=== PATIENT | female | born 1970 | race Caucasian/White ===

== ENCOUNTER → 2020-02-04 17:30 | Outpatient (CLI) | payer OTHER, SELFPAY ==
--- NOTE | ~2020-02-04 | MM_ITS ---
EXAMINATION: MM screening cholo BI w ronnie HISTORY: Screening mammogram TECHNIQUE: Craniocaudal and mediolateral oblique 3-D tomosynthesis images were obtained and synthetic 2-D images were generated. CAD analysis was submitted and interpreted. COMPARISON: No prior mammogram is available for comparison at this institution. BREAST PARENCHYMAL COMPOSITION: The breasts are heterogeneously dense, which may obscure small masses . FINDINGS: Stable bilateral breast asymmetries. No new masses, calcifications or architectural distort ion. There is no evidence of suspicious mass, calcification, or architectural distortion to suggest m alignancy in either breast. IMPRESSION: 1. No mammographic evidence of malignancy. 2. Recommend routine screening mammography in one year. BI-RADS Category 2: Benign finding(s). Reviewed, dictated and finalized at location A.
== END ==
PROVIDERS: Visit Provider Nurse Practitioner Family
DX: Z12.31 Encounter for screening mammogram for malignant neoplasm of breast (principal)
CPT/HCPCS: 77063; 77067

== ENCOUNTER → 2021-07-15 10:19 | Outpatient (CLI) | payer BC, SELFPAY ==
--- NOTE | ~2021-07-15 | MM_ITS ---
EXAMINATION: MM screening cholo BI w ronnie HISTORY: Screening TECHNIQUE: Craniocaudal and mediolateral oblique 3-D tomosynthesis images were obtained and synthetic 2-D images were generated. CAD analysis was submitted and interpreted. COMPARISON: Comparison to multiple prior studies sequentially, with oldest reviewed study dated 08/09. BREAST PARENCHYMAL COMPOSITION: There are scattered areas of fibroglandular density. FINDINGS: There is a developing mass in the upper outer quadrant of the right breast anteriorly. Ther e is possible architectural distortion laterally in the left breast on CC view. IMPRESSION: 1. Developing right breast mass. Possible architectural distortion of the left breast. 2. Additional mammographic views and possible breast ultrasound are recommended. BI-RADS Category 0: Incomplete: Needs additional imaging evaluation. Reviewed, dictated and finalized at location A. IMPRESSION: 1. Developing right breast mass. Possible architectural distortion of the left breast. 2. Additional mammographic views and possible breast ultrasound are recommended . BI-RADS Category 0: Incomplete: Needs additional imaging evaluation.
== END ==
PROVIDERS: Visit Provider Nurse Practitioner
DX: Z12.31 Encounter for screening mammogram for malignant neoplasm of breast (principal); R92.8 Other abnormal and inconclusive findings on diagnostic imaging of breast
CPT/HCPCS: 77063; 77067

== ENCOUNTER 2021-08-08 11:57 | Outpatient (CLI) | payer BC, SELFPAY ==
--- NOTE | ~2021-08-08 | MMUS_ITS ---
EXAMINATION: MM diagnostic cholo BI w ronnie, US breast BI complete HISTORY: Follow-up breast asymmetries TECHNIQUE: Additional 3-D tomosynthesis images of the breasts were performed and synthetic 2-D images were generated. CAD analysis was submitted and interpreted. High resolution bilateral complete breas t ultrasound was performed. COMPARISON: Comparison to multiple prior studies sequentially, with oldest reviewed study dated 07/07. BREAST PARENCHYMAL COMPOSITION: The breasts are heterogenously dense, which may obscure small masses. FINDINGS: MAMMOGRAPHIC FINDINGS: There are masses in the periareolar aspect of the right breast. There are no suspicious masses, calci fications or architectural distortion in the left breast. ULTRASOUND: Right breast ultrasound: At 2:00, 2 cm from the nipple, there is a 4 mm cyst. There are mildly promin ent subareolar ducts. At 11:00, 3 cm from the nipple there is a 6 mm cyst. At 11:00, 2 cm from the ni pple, there is an oval hypoechoic mass with heterogeneous internal echotexture measuring 1.5 x 1.4 x 0.7 cm there is parallel orientation without significant posterior features or internal vascularity. Left breast ultrasound: At 5:00, 5 cm from the nipple, there is an oval hypoechoic mass measuring 6 m m maximum dimension, likely a benign cluster of microcysts. IMPRESSION: 1. Probable benign bilateral breast masses. 2. Recommend 6 month follow-up diagnostic bilateral mammogram and ultrasound BI-RADS category 3, probably benign findings. Reviewed, dictated and finalized at location A. IMPRESSION: 1. Probable benign bilateral breast masses. 2. Recommend 6 month follow-up diagnostic bilateral mammogram and ultrasound BI-RADS category 3, probably benign findings.
== END 2021-08-08 11:58 | disposition home or self-care (01) ==
LOC: ANHIMG 11:59
PROVIDERS: Visit Provider Obstetrics & Gynecology Gynecology
DX: R92.8 Other abnormal and inconclusive findings on diagnostic imaging of breast (principal)
CPT/HCPCS: 76641; 77062; 77066; G0279

== ENCOUNTER 2021-08-12 01:12 | Day surgery (SDC) | payer BC, SELFPAY ==
[2021-08-02 10:22] VITALS: BMI 33.0
[2021-08-12 06:20] VITALS: BP 139/88; PULSE 96; RESP 20; TEMP 36.1; O2SAT 95; BMI 33.3
[2021-08-12] MEDS: LACTATED RINGERS 1,000 ML 150 ML IV CONT (06:39)
--- NOTE | 2021-08-12 07:22 | P.PNAN_ITS ---
Anes - Initial Pre Proc Eval Procedure: Operation Date: 08/12/21 07:30 Proposed Procedures p Screening Colonoscopy - Alden Rae MD Date/Time: 08/12/21 07:22 Surgeon: Alden Rae MD Pre Op Diagnosis: neoplasm screening Patient Data Age: 50 Gender: F Height: 1.7 m Weight: 96.6 kg Last Vital Signs Temp 96.9 F L 08/12/21 06:20 Pulse 96 08/12/21 06:20 Resp 20 08/12/21 06:20 BP 139/88 08/12/21 06:20 Pulse Ox 95 08/12/21 06:20 Allergies Allergy/AdvReac Type Severity Reaction Status Date / Time aspirin AdvReac Mild UNSURE Verified 08/12/21 06:18 Home Medications Medication Instructions Recorded Confirmed Type buspirone 7.5 mg tablet 7.5 mg PO BID PRN tablet 06/14/21 08/02/21 History bqfmeyrjxz-xxtsopkszuvzb-rmottgrd See Rx Instructions PO Q4-6H PRN 06/14/21 08/02/21 History 50 mg-300 mg-40 mg capsule cap indomethacin 50 mg capsule 100 mg PO BID PRN cap 06/14/21 08/02/21 History eslicarbazepine [Aptiom] 600 mg PO DAILY 08/02/21 08/02/21 History Patient hx anesthesia problems: none Family hx anesthesia problems: none Results Review: All pre-operative results and documents have been reviewed as part of the pre-operative evaluation. [facility] Past Medical History Medical History (Updated 08/12/21 @ 07:23 by Kirt Pitts MD) Migraine Obesity Seizure Social History Social History Smoking packs per day: 1 Smoking cigarettes per day: 20.0 Years smoked: 30 Smoking pack-years: 30.00 Smoking status: Current every day smoker Tobacco type: cigarettes Alcohol intake: current Living arrangements: with family Spiritual care concerns: No Anes - Eval Final PreProcedure Day of Procedure 08/12/21 07:22 Patient weight: obese Heart: regular rate and rhythm Lungs: clear to auscultation Airway: Mallampati scale class II Neurological: alert and oriented Last oral intake: >/= 8 hours ASA classification: III Emergent: no Anesthetic plan: proceed Anesthesia type and monitoring: general GIVS and standard monitoring Results Review: All pre-operative results and documents have been reviewed as part of the pre-operative evaluation. Informed Consent: The patient's anesthetic plan and its attendant risks and benefits were discussed with the patient/family/POA. Questions were solicited and answers provided to the satisfaction of the patient/family/POA.
--- NOTE | 2021-08-12 07:22 | PM.HPGS ---
History of Present Illness History of Present Illness Consent: Risks, benefits, and alternatives have been discussed and questions answered. Patient agrees to proceed with procedure. Chief complaint: neoplasm screening Narrative: Stefanie Ocampo is a 50 year old female here for first screening colonoscopy Review of Systems Constitutional: Constitutional: Denies headache(s) and Denies weakness Eyes: Eyes: Denies blurry vision ENT: Reports Normal hearing present, Denies headache(s) and Denies neck pain Cardiovascular: Cardiovascular: Denies chest pain and Denies dyspnea Respiratory: Respiratory: Denies dyspnea Gastrointestinal: Gastrointestinal: Reports no additional gastrointestinal complaints Genitourinary: Genitourinary: Denies dysuria Musculoskeletal: Musculoskeletal: Denies neck pain Integumentary/Breasts: Skin/Breast: Denies dry skin Neurologic: Reports Normal hearing present, Denies headache(s) and Denies weakness Psychiatric: Psychiatric: Denies anxiety Endocrine: Endocrine: Denies change in body appearance Hematologic/Lymphatic: Hematologic/Lymphatic: Denies easy bleeding Allergic/Immunologic: Allergic/Immunologic: Denies urticaria PMFSH Past Medical History Medical History (Updated 08/12/21 @ 07:25 by Alden Rae MD) Colon cancer screening Migraine Obesity Seizure Social History Social History Smoking packs per day: 1 Smoking cigarettes per day: 20.0 Years smoked: 30 Smoking pack-years: 30.00 Smoking status: Current every day smoker Tobacco type: cigarettes Alcohol intake: current Living arrangements: with family Spiritual care concerns: No Meds Home Medications and Allergies Home Medications Medication Instructions Recorded Confirmed Type buspirone 7.5 mg tablet 7.5 mg PO BID PRN tablet 06/14/21 08/02/21 History tzepvklbwq-ifhwwfvuwnefk-cdnlmnvf See Rx Instructions PO Q4-6H PRN 06/14/21 08/02/21 History 50 mg-300 mg-40 mg capsule cap indomethacin 50 mg capsule 100 mg PO BID PRN cap 06/14/21 08/02/21 History eslicarbazepine [Aptiom] 600 mg PO DAILY 08/02/21 08/02/21 History Allergies Allergy/AdvReac Type Severity Reaction Status Date / Time aspirin AdvReac Mild UNSURE Verified 08/12/21 06:18 Vital Signs Vital Signs - 24 hr 08/12/21 06:20 Temperature 96.9 F L Pulse Rate 96 Respiratory Rate 20 Blood Pressure 139/88 Pulse Oximetry 95 Exam Const: General: comfortable and no acute distress HENMT: General nose exam: Normal nares present Eyes: General: appearance normal, both eyes and all related structures Neck: Neck: no JVD Resp: Auscultation: clear to auscultation bilaterally Cardio: Rate: regular rate Rhythm: regular rhythm GI: Inspection: non-distended GI Palp: Yes Soft to palpation Skin: General skin exam: normal color Neuro: General: gait normal Speech: normal speech Extrem: General: normal to inspection Psych: Mental Status: mental status grossly normal Assessment and Plan Assessment and plan (1) Colon cancer screening: Code(s): Z12.11 - Encounter for screening for malignant neoplasm of colon Status: Acute Assessment and Plan: colonoscopy
[2021-08-12 07:53] VITALS: BP 108/70; PULSE 70; RESP 17; O2SAT 97
[2021-08-12 08:03] VITALS: BP 117/75; PULSE 65; RESP 16; O2SAT 97
[2021-08-12 08:13] VITALS: BP 119/76; PULSE 61; RESP 17; O2SAT 97
== END 2021-08-12 08:43 | disposition home or self-care (01) ==
PROVIDERS: PCP Internal Medicine; Visit Provider Internal Medicine Gastroenterology
PROC: 0DJD8ZZ Inspection of Lower Intestinal Tract, Via Natural or Artificial Opening Endoscopic (ICD-10-PCS; CPT 45378; principal; 2021-08-12 07:30)
DX: Z12.11 Encounter for screening for malignant neoplasm of colon (principal); K62.1 Rectal polyp; D12.0 Benign neoplasm of cecum; D12.5 Benign neoplasm of sigmoid colon; D12.3 Benign neoplasm of transverse colon; K63.5 Polyp of colon; K57.30 Diverticulosis of large intestine without perforation or abscess without bleeding; K64.8 Other hemorrhoids; R56.9 Unspecified convulsions; F17.210 Nicotine dependence, cigarettes, uncomplicated; E66.9 Obesity, unspecified; Z68.33 Body mass index [BMI] 33.0-33.9, adult
CPT/HCPCS: 45385; 88305; J7120

== ENCOUNTER → 2022-04-19 09:14 | Outpatient (CLI) | payer BC, SELFPAY ==
--- NOTE | ~2022-04-19 | MMUS_ITS ---
EXAMINATION: MM diagnostic cholo BI w ronnie, US breast BI limited HISTORY: Six-month follow-up for probably benign breast masses TECHNIQUE: Craniocaudal, mediolateral, and mediolateral oblique 3-D tomosynthesis images of the breluke ts were performed and synthetic 2-D images were generated. CAD analysis was submitted and interpreted . High resolution limited bilateral breast ultrasound was performed. COMPARISON: 08/08/2021, 07/15/2021, 02/04/2020, 05/07/2019, 08/15/2017 BREAST PARENCHYMAL COMPOSITION: The breasts are heterogeneously dense, which may obscure small masses . FINDINGS: MAMMOGRAPHIC FINDINGS: Left breast: There is a 1.4 cm mass in the middle third of the inner breast at the 9:00 location 5.5 cm from the nipple. Right breast: There is a stable 1.3 cm oval, obscured equal density mass near the in the upper outer quadrant of the breast at the 11:00 location 2 cm from the nipple. ULTRASOUND: Left breast: There is a stable 6 mm mass at the 4:00 location 5 cm from the nipple which has the appe arance of an evolving cluster of microcysts. Right breast: There is a stable 3 mm round mass at the 2:00 location 2 cm from the nipple. There is a stable 4 mm oval, circumscribed, parallel, hypoechoic mass with no posterior features or internal va scularity at the 7:00 location 6 cm from the nipple. A solid 1.4 cm mass is present at the 11:00 loca tion 2 cm from the nipple which has been stable since 2019. An adjacent 7 mm mass with similar sonogr aphic features is also stable. IMPRESSION: 1. No mammographic or sonographic evidence of malignancy. 2. Recommend routine screening mammography in one year. BI-RADS Category 2: Benign finding(s). Reviewed, dictated and finalized at location A. IMPRESSION: 1. No mammographic or sonographic evidence of malignancy. 2. Recommend routine screening mammography in one year. BI-RADS Category 2: Benign finding(s).
== END ==
PROVIDERS: PCP Internal Medicine; Visit Provider Obstetrics & Gynecology Gynecology
DX: N63.25 Unspecified lump in the left breast, overlapping quadrants (principal); N63.14 Unspecified lump in the right breast, lower inner quadrant
CPT/HCPCS: 76642; 77062; 77066; G0279

== ENCOUNTER → 2023-06-25 15:46 | Outpatient (CLI) | payer BC, SELFPAY ==
--- NOTE | ~2023-06-25 | MM_ITS ---
EXAMINATION: MM screening cholo BI w ronnie HISTORY: Screening TECHNIQUE: Craniocaudal and mediolateral oblique 3-D tomosynthesis images were obtained and synthetic 2-D images were generated. CAD analysis was submitted and interpreted. COMPARISON: Comparison to multiple prior studies sequentially, with oldest reviewed study dated 02/2017. BREAST PARENCHYMAL COMPOSITION: Breast composed of scattered areas of fibroglandular density FINDINGS: There are multiple developing bilateral breast masses. There are no suspicious calcificatio ns. No focal architectural distortion is identified. IMPRESSION: 1. Developing bilateral breast masses involving multiple quadrants of the right breast in the lower i nner quadrant of the left breast.. 2. Additional mammographic views and possible breast ultrasound are recommended. BI-RADS Category 0: Incomplete: Needs additional imaging evaluation. Reviewed, dictated and finalized at location A. IMPRESSION: 1. Developing bilateral breast masses involving multiple quadrants of the right breast in the lower inner quadrant of the left breast.. 2. Additional mammographic views and possible breast ultrasound are recommended . BI-RADS Category 0: Incomplete: Needs additional imaging evaluation.
== END ==
PROVIDERS: PCP Nurse Practitioner; Visit Provider Nurse Practitioner
DX: Z12.31 Encounter for screening mammogram for malignant neoplasm of breast (principal); N63.25 Unspecified lump in the left breast, overlapping quadrants; N63.15 Unspecified lump in the right breast, overlapping quadrants
CPT/HCPCS: 77063; 77067

== ENCOUNTER → 2023-07-20 08:04 | Outpatient (CLI) | payer BC, SELFPAY ==
--- NOTE | ~2023-07-20 | MMUS_ITS ---
EXAMINATION: MM diagnostic cholo BI w ronnie, US breast BI complete HISTORY: Developing bilateral breast masses seen in multiple quadrants of right breast and lower inne r quadrant of left breast were reported on 06/25/2023 right screening mammogram examination TECHNIQUE: Additional 3-D tomosynthesis images of both breasts were performed and synthetic 2-D image s were generated. CAD analysis was submitted and interpreted. High resolution complete bilateral hernan st ultrasound examination including all 4 quadrants and subareolar areas was performed. COMPARISON: 06/25/2023 bilateral screening mammogram FINDINGS: MAMMOGRAPHIC FINDINGS: Right breast: Circumscribed approximately 1.8 cm x 1.5 cm mass is noted anteriorly in the upper outer right breast. Bilobed approximately 7.4 x 16 mm circumscribed mass is noted in the outer mid right breast. Left breast: Circumscribed approximately 7 x 15 mm mass with halo sign is noted in the inner mid left breast. ULTRASOUND: Right breast: 9:00 4.5 cm from nipple: There is a bilobed approximately 5 x 10.5 mm circumscribed mildly irregular mass with mild internal vascularity on color flow imaging. 11:00 3.5 cm from nipple: Circumscribed irregular hypoechoic heterogeneous solid 1 x 2 x 1.5 cm mass with internal vascularity, no posterior shadowing 11:00 5 cm from nipple: Circumscribed mildly irregular hypoechoic solid 5.7 x 8.3 x 8.7 mm mass witho ut internal vascularity or posterior shadowing Left breast: 9:00 5 cm from nipple: Parallel circumscribed hypoechoic 7 x 10 mm mass without internal vascularity or posterior shadowing, benign in appearance IMPRESSION: 1. 3 indeterminate right breast solid masses with mildly irregular margins, at 9:00 and 11:00 2. Ultrasound-guided biopsy of 3 right breast masses is recommended BI-RADS category 4, suspicious findings. Dr. Almaguer telephoned the report and ultrasound-guided biopsy recommendation of 3 right breast masses o n 07/14/2023 at 1047 hours to [place]. Reviewed, dictated and finalized at location A. IMPRESSION: 1. 3 indeterminate right breast solid masses with mildly irregular margins, at 9:00 and 11:00 2. Ultrasound-guided biopsy of 3 right breast masses is recommended BI-RADS category 4, suspicious findings. Dr. Almaguer telephoned the report and ultrasound-guided biopsy recommendation of 3 right breast masses on 07/14/2023 at 1047 hours to [place].
== END ==
PROVIDERS: PCP Obstetrics & Gynecology Gynecology; Visit Provider Obstetrics & Gynecology Gynecology
DX: R92.8 Other abnormal and inconclusive findings on diagnostic imaging of breast (principal)
CPT/HCPCS: 76641; 77062; 77066; G0279

== ENCOUNTER 2023-08-10 08:37 | Outpatient (CLI) | payer BC, SELFPAY ==
--- NOTE | ~2023-08-10 | MMUS_ITS ---
ADDENDUM 08/21/2023 pathology report: Fibroepithelial proliferation with features consistent with fibroadenoma was reported for right breast 11:00 lesion 5 cm from nipple, right breast 11:00 lesion 3.5 cm from nipple and right breast 9:00 lesion 4.5 cm from nipple. The imaging and pathology findings are concordant. 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 ADDENDUM 08/13/2023 pathology report: Left breast 11:00 lesion 5 cm from nipple: Fibroadenoma; negative for in situ or invasive carcinoma Left breast 11:00 3.5 cm from nipple: Fibroadenoma and fibrocystic changes; negative for in situ or invasive carcinoma Left breast 9:00 4.5 cm from nipple: Fibroadenoma; negative for in situ or invasive carcinoma Sonographic features and pathology diagnosis are concordant for all 3 lesions. CORRECTED REPORT side was corrected from left to right [facility] [place] 08/14/23 This report was recreated on 08/14/23. Original report was EXAMINATION: US GUIDED NEEDLE BIOPSY DATE: 08/10/2023 10:37 CDT INDICATION: RIGHT breast masses at 9:00 4.5 cm from nipple, 11:00 3.5 cm from nipple and 11:00 5 cm from nipple TECHNIQUE AND FINDINGS: The risks and potential benefits of the procedure were discussed with the patient, and written informed consent was obtained. Timeout procedure was performed. After sterile preparation of the left breast, 1% lidocaine was utilized for local anesthesia. A 12 G spring-loaded biopsy gun needle was advanced to the edge of the region of interest from a superolateral approach through the same incision site for all 3 lesions, utilizing sonographic guidance. A total of 4 tissue core samples were obtained through the 9:00 lesion and 3 tissue core samples each from the 11:00 lesions. An Inrad tissue marker clip was then placed at each biopsy site. Hemostasis was achieved. A sterile bandage was applied. The patient tolerated procedure well and there was no evidence of immediate complication. The patient was given verbal instructions prior to departing from the department. A two view mammogram was performed to document tissue marker clip placement. The tissue samples were submitted to surgical pathology for histologic analysis. IMPRESSION: Ultrasound guided biopsy of 3 RIGHT breast masses with biopsy marker placement. Please refer to pathology report for histologic analysis. Reviewed, dictated and finalized at Location A. Reviewed, dictated and finalized at location A. MTDD IMPRESSION: Ultrasound guided biopsy of 3 left breast masses with biopsy marker placement. Please refer to pathology report for histologic analysis.
== END 2023-08-10 08:38 | disposition home or self-care (01) ==
PROVIDERS: PCP Obstetrics & Gynecology Gynecology; Visit Provider Surgery
DX: N63.10 Unspecified lump in the right breast, unspecified quadrant (principal); R92.8 Other abnormal and inconclusive findings on diagnostic imaging of breast
CPT/HCPCS: 19083; 19084; 88305; A4648

== ENCOUNTER 2024-05-28 10:32 | Outpatient (CLI) | payer BC, SELFPAY ==
--- NOTE | ~2024-05-28 | MR_ITS ---
MRI of the brain Clinical History: Migraine Technique: Axial and sagittal T1-weighted images were acquired. These were followed by axial T2-weigh megan, diffusion weighted, gradient, and FLAIR images. COMPARISON: 12/05/2018 Findings: No significant signal abnormality seen in the brain parenchyma. No acute infarct, intracran ial hemorrhage, or mass lesion. Ventricles and subarachnoid spaces are unremarkable. Orbits are unremarkable. Paranasal sinuses and m astoid air cells are clear. Major intracranial flow voids are intact. Sagittal midline structures are intact. IMPRESSION: No significant abnormality seen. Reviewed, dictated and finalized at location M.
== END 2024-05-28 10:33 ==
LOC: MICIMG 10:33
PROVIDERS: PCP Internal Medicine; Visit Provider Student in an Organized Health Care Education/Training Program
DX: G43.909 Migraine, unspecified, not intractable, without status migrainosus (principal); Z86.69 Personal history of other diseases of the nervous system and sense organs
CPT/HCPCS: 70551

== ENCOUNTER 2024-11-28 00:12 | Day surgery (SDC) | payer BC, SELFPAY ==
[2024-11-14 10:25] VITALS: BMI 32.1
[2024-11-28 07:14] VITALS: BP 140/88; PULSE 77; RESP 16; TEMP 35.9; O2SAT 99; BMI 33.0
[2024-11-28] MEDS: LACTATED RINGERS 1,000 ML 150 ML IV CONT (07:22)
--- NOTE | 2024-11-28 07:23 | WPDANESEPPF ---
Anes - Initial Pre Proc Eval Procedure: Operation Date: 11/28/24 08:30 Proposed Procedures p Colonoscopy - Dionicio Mcdonald MD Date/Time: 11/28/24 07:23 Surgeon: Dionicio Mcdonald MD Pre Op Diagnosis: hx of colon polyps Patient Data Age: 53 Gender: F Height: 1.7 m Weight: 95.8 kg Last Vital Signs Temp 35.9 C L 11/28/24 07:14 Pulse 77 11/28/24 07:14 Resp 16 11/28/24 07:14 BP 140/88 11/28/24 07:14 Pulse Ox 99 11/28/24 07:14 O2 Del Method Room Air 11/28/24 07:14 Allergies Allergy/AdvReac Type Severity Reaction Status Date / Time aspirin AdvReac Intermediate Seizure Verified 11/28/24 07:11 Home Medications ?Medication ?Instructions ?Recorded ?Confirmed ?Type buspirone 7.5 mg tablet 7.5 mg PO BID PRN Anxiety 06/14/21 11/14/24 History indomethacin 50 mg capsule 100 mg PO BID PRN Pain 06/14/21 11/14/24 History ubrogepant 100 mg tablet (Ubrelvy) 100 mg PO ONCE PRN migraine 04/29/24 11/14/24 Rx headache #16 tabs atorvastatin 10 mg tablet 10 mg PO QPM 11/14/24 11/28/24 History hydrochlorothiazide 25 mg tablet 25 mg PO DAILY 11/14/24 11/28/24 History eslicarbazepine 800 mg tablet 800 mg PO DAILY #30 tabs 11/25/24 11/28/24 Rx (Aptiom) levetiracetam 500 mg 500 mg PO DAILY #120 tabs 11/25/24 11/28/24 Rx tablet,extended release 24 hr (Keppra XR) Patient hx anesthesia problems: none Family hx anesthesia problems: none Results Review: All pre-operative results and documents have been reviewed as part of the pre-operative evaluation. [facility] Past Medical History Medical History Hyperlipidemia Epilepsy HTN (hypertension) Colon cancer screening Obesity Migraine Seizure Surgical History Surgical History History of tubal ligation 2008 Hx of breast surgery 2009 History of vaginal surgery cone procedure in 2009 Family History Family History Other Cancer Heart disease Hypertension Social History Social History Social History: current Smoking packs per day: 1 Smoking cigarettes per day: 20.0 Years smoked: 30 Smoking pack-years: 30.00 Smoking status: Former smoker Tobacco type: cigarettes Smoking end date: 05/30/22 Alcohol intake: current Drinks per week: 6 Alcohol use details: Casual Substance use: never Substance use type: does not use Do You Feel Safe in your Home?: Yes Lack of Transportation: No Lack of Food: Never True Current Housing: I Have Housing Concerned About Future Housing: No Difficulty Paying Gas/Electric Bills: No Difficulty Paying for Meds: No Currently Unemployed: No Education: Associate Degree Living arrangements: with family Occupation/Education: occupation Gender identity (if verbalized by the patient): Female Spiritual care concerns: No Anes - Eval Final PreProcedure Day of Procedure 11/28/24 07:23 Patient weight: obese Heart: regular rate and rhythm Lungs: clear to auscultation Airway: Mallampati scale class II Neurological: alert and oriented Last oral intake: >/= 8 hours ASA classification: III Emergent: no Anesthetic plan: proceed Anesthesia type and monitoring: general GIVS and standard monitoring Results Review: All pre-operative results and documents have been reviewed as part of the pre-operative evaluation. Informed Consent: The patient's anesthetic plan and its attendant risks and benefits were discussed with the patient/family/POA. Questions were solicited and answers provided to the satisfaction of the patient/family/POA.
--- NOTE | 2024-11-28 08:03 | PM.IMHP ---
H&P: HPI History of Present Illness Date/Time: 11/28/24 08:03 Chief Complaint: history of polyps Narrative: The patient has a history of colonic polyps, the last colonoscopy was Five years ago. Review of Systems Review of Systems: All systems reviewed & are unremarkable except as noted in HPI and below PMFSH Past Medical History Medical History Hyperlipidemia Epilepsy HTN (hypertension) Colon cancer screening Obesity Migraine Seizure Surgical History Surgical History History of tubal ligation 2008 Hx of breast surgery 2009 History of vaginal surgery cone procedure in 2009 Family History Family History Other Cancer Heart disease Hypertension Social History Social History Social History: current Smoking packs per day: 1 Smoking cigarettes per day: 20.0 Years smoked: 30 Smoking pack-years: 30.00 Smoking status: Former smoker Tobacco type: cigarettes Smoking end date: 05/30/22 Alcohol intake: current Drinks per week: 6 Alcohol use details: Casual Substance use: never Substance use type: does not use Do You Feel Safe in your Home?: Yes Lack of Transportation: No Lack of Food: Never True Current Housing: I Have Housing Concerned About Future Housing: No Difficulty Paying Gas/Electric Bills: No Difficulty Paying for Meds: No Currently Unemployed: No Education: Associate Degree Living arrangements: with family Occupation/Education: occupation Gender identity (if verbalized by the patient): Female Spiritual care concerns: No Meds Home Medications and Allergies Home Medications ?Medication ?Instructions ?Recorded ?Confirmed ?Type buspirone 7.5 mg tablet 7.5 mg PO BID PRN Anxiety 06/14/21 11/14/24 History indomethacin 50 mg capsule 100 mg PO BID PRN Pain 06/14/21 11/14/24 History ubrogepant 100 mg tablet (Ubrelvy) 100 mg PO ONCE PRN migraine 04/29/24 11/14/24 Rx headache #16 tabs atorvastatin 10 mg tablet 10 mg PO QPM 11/14/24 11/28/24 History hydrochlorothiazide 25 mg tablet 25 mg PO DAILY 11/14/24 11/28/24 History eslicarbazepine 800 mg tablet 800 mg PO DAILY #30 tabs 11/25/24 11/28/24 Rx (Aptiom) levetiracetam 500 mg 500 mg PO DAILY #120 tabs 11/25/24 11/28/24 Rx tablet,extended release 24 hr (Keppra XR) Allergies Allergy/AdvReac Type Severity Reaction Status Date / Time aspirin AdvReac Intermediate Seizure Verified 11/28/24 07:11 Vital Signs Vital Signs - 24 hr 11/28/24 07:14 Temperature 96.6 F L Pulse Rate 77 Respiratory Rate 16 Blood Pressure 140/88 Pulse Oximetry 99 Oxygen Delivery Room Air Exam Const: General: cooperative and healthy appearing Resp: Effort & Inspection: normal respiratory effort and able to speak in complete sentences Auscultation: clear to auscultation bilaterally Cardio: Rate: regular rate Rhythm: regular rhythm GI: Inspection: normal to inspection GI Palp: No No hepatosplenomegaly present Auscultation: normal bowel sounds Rectal Exam: deferred Skin: General skin exam: normal color Psych: Appearance: grossly normal Mental Status: mental status grossly normal Assessment and Plan Assessment and plan (1) Colon cancer screening: Code(s): Z12.11 - Encounter for screening for malignant neoplasm of colon Status: Acute Assessment and Plan: The patient is deemed a good candidate for the procedure. Consent signed. Will proceed.
[2024-11-28 08:18] VITALS: BP 118/64; PULSE 72; RESP 24; O2SAT 100
[2024-11-28 08:28] VITALS: BP 106/65; PULSE 60; RESP 14; O2SAT 100
[2024-11-28 08:38] VITALS: BP 126/75; PULSE 57; RESP 16; O2SAT 100
--- OUTSIDE RECORDS SUMMARY | 2024-12-04 04:36 | XMS_ITS | Clinical Summary ---
Author Organization [facility] Address [address] [place] [phone] Phone Care Team Providers Care Copping Machine Operator Name Role Phone Hayden Mendez MD Primary Care Provider [phone] Allergies Active Allergy Reactions Criticality Noted Date Comments Aspirin Seizure High 06/30/2015 seizure Medications atorvastatin (LIPITOR) 10 mg tablet Take 10 mg by mouth. 12/17/2023 Active busPIRone (BUSPAR) 7.5 mg Tablet TAKE 2 TABLETS(15 MG) BY MOUTH TWICE DAILY 12/17/2023 Active cyanocobalamin (VITAMIN B-12) 250 mcg Tablet Take 250 mcg by mouth daily. Active eslicarbazepine (Aptiom) 600 mg Tablet tablet Take 1 Tablet by mouth daily. Active glucosamine-cho ndroitin (ARTHX DS) 500-400 mg Capsule Take 1 Capsule by mouth daily. Active hydroCHLOROthia zide 25 mg tablet Take 25 mg by mouth. 12/10/2023 Active indomethacin (INDOCIN) 50 mg capsule TAKE 1 CAPSULE(50 MG) BY MOUTH THREE TIMES DAILY NEEDED 09/15/2022 Active Active Problems Problem Noted Date Diagnosed Date Hyperlipidemia 01/02/2024 HTN (hypertension), benign 01/02/2024 Gout, arthritis 10/16/2017 Grand mal seizure disorder 03/13/2013 Anxiety 06/25/2012 Migraine, unspecified, not i ntractable, without status migrainosus 06/25/2012 Encounters Date Type Department Care Team Description 12/02/2024 External Device Data ST[facility] ABSTRACTION Provider, Abstract 11/18/2024 External Device Data [facility] ABSTRACTION Provider, Abstract 09/10/2024 External Device Data [facility] ABSTRACTION Provider, Abstract from Last 3 Months Immunizations Immunization Administration Dates Next Due INFLUENZA VACCINE QUADRIVALE NT 6 MOS UP PF IM 08/27/2023,07/27/2022,08/17/2021 Social History Tobacco Use Types Packs/Day Years Used Date Smoking Tobacco: Every Day Cigarettes Smokeless Tobacco: Never Comments No Sex and Gender Information Value Date Recorded Sex Assigned at Not on file Legal Sex Female 8:27 PM CDT Gender Identity Not on file Sexual Orientation Not on file Last Filed Vital Signs Vital Sign Reading Time Taken Comments Blood Pressure 138/78 01/02/2024 9:31 AM TRAFFIC MAINTENANCE OFFICER Pulse 74 01/02/2024 9:31 AM TRAFFIC MAINTENANCE OFFICER Temperature 36.6 ??C (97.8 ??F) 01/02/2024 9:31 AM CS T Respiratory Rate - - Oxygen Saturation 96% 01/02/2024 9:31 AM TRAFFIC MAINTENANCE OFFICER Inhaled Oxygen Concentration - - Weight 98.5 kg (217 lb 4 oz) 01/02/2024 9:31 AM TRAFFIC MAINTENANCE OFFICER Height 170.2 cm (5' 7 ) 01/02/2024 9:31 AM TRAFFIC MAINTENANCE OFFICER Body Mass Index 34.03 01/02/2024 9:31 AM TRAFFIC MAINTENANCE OFFICER Plan of Treatment Health Maintenance Due Date Last Done Comments Pre-Diabetes and Diabetes Screening 1969 PNEUMOCOCCAL VACCINE 0-64 YE ARS (1 of 2 - PCV) 1975 DTAP/TDAP/TD VACCINES (1 - Tdap) 1988 HEPATITIS B VACCINES (1 of 3 - 19+ 3-dose series) 1988 CERVICAL CANCER SCREENING 1999 BREAST CANCER SCREENING 2009 FIT-DNA Q 3 years 2014 FIT/FOBT Q 1 year 2014 Flex Sig/CT Colonography Q 5 years 2014 ZOSTER VACCINE (1 of 2) 2019 INFLUENZA VACCINE (#1) 2024 3, 07/27/2022, 08/17/2021 COVID-19 Vaccine ( season) 2024 11/20/2021, 03/11/2021, 02/11/2021 COLORECTAL SCREENING 08/12/2031 08/12/2021 Colorectal Cancer Screening 08/12/2031 Insurance [facility] [employer] ACCESS CHOICE [facility] [employer] ACCESS CHOICE Care Teams Copping Machine Operator Relationship Specialty Start Date End Date Hayden Mendez MD [address] [place] [address] PCP - General Internal Medicine 01/02/24
--- OUTSIDE RECORDS SUMMARY | 2024-12-04 04:36 | XMS_ITS | Encounter Summary ---
Author Organization [facility] Address [address] [place] [address] Care Team Providers Care Pest Control Worker Name Role Phone Hayden Mendez MD Primary Care Provider [phone] Encounter Details Date Type Department Care Team (Late st Contact Info) Description 03/29/2020 Lab Requisition [facility] [address] [place] [address] Kevyn Adams MD [address] [place] [address] Social History Tobacco Use Types Packs/Day Years Used Date Smoking Tobacco: Never Assessed Comments Unknown Sex and Gender Information Value Date Recorded Sex Assigned at Not on file Legal Sex Female 8:27 PM CDT Gender Identity Not on file Sexual Orientation Not on file documented as of this encounter Plan of Treatment Not on file documented as of this encounter Procedures Procedure Name Priority Date/Time Associated Diagnosis Comments 2019 NOVEL CORONAVIRUS (COVID-19) PCR DETECTION Routine 03/29/2020 8:28 PM CDT documented in this encounter Results * 2019 NOVEL CORONAVIRUS (COVID-19) PCR DETECTION (03/29/2020 8:28 PM CDT) COVID-19 PCR Not Detected Not Detected 03/31/20 20 5:15 AM CDT [facility] Comment:See Scanned Report PERFORMING LAB [facility] 03/31/2020 5:15 AM CDT [facility] Upper Respiratory Collection / Unknown 03/29/2020 8:28 PM CDT 03/29/2020 8:28 PM CDT Kevyn Adams MD MICROBIOLOGY - GENERAL ORDERABLES Final Result [facility] --- [facility]# [id number] [address] [place] [address] [id number] [address] [place] [address] documented in this encounter Visit Diagnoses Not on filedocumented in this encounter Care Teams Pest Control Worker Relationship Specialty Start Date End Date Hayden Mendez MD [address] [place] [phone] PCP - General Internal Medicine 01/02/24 documented as of this encounter
--- OUTSIDE RECORDS SUMMARY | 2024-12-04 04:36 | XMS_ITS | Referral Summary ---
Author Organization [facility] Address [address] [facility] [place] [address] Care Team Providers Care Engraver Jewelry Name Role Phone Hayden Mendez MD Primary Care Provider [phone] [facility],non-owned Affiliates and Associated Physician Practices is amultiple site organization consisting of ambulatory clinics and hospital sitesin [place], [place], [place] and [place]. This disclosure is being madepursuant to the Care Everywhere program and may not contain all information available regarding this patient. Last updated 18.[facility] Medications * Be aware that medications may not be up to date on this document. Alwaysverify current medications with the patient. Medication Sig Dispensed Refills Start Date End Date Status pantoprazole EC (PROTONIX) 20 MG tablet Take 1 tablet by mouth once daily 30 tablet 11/07/2018 Active Social History Tobacco Use Types Packs/Day Years Used Date Smoking Tobacco: Never Assessed Sex and Gender Information Value Date Recorded Sex Assigned at Not on file Gender Identity Not on file Sexual Orientation Not on file Last Filed Vital Signs Vital Sign Reading Time Taken Comments Blood Pressure 135/89 11/07/2018 3:00 PM ECONOMIC DEVELOPMENT MANAGER Pulse 87 11/07/2018 3:00 PM ECONOMIC DEVELOPMENT MANAGER Temperature - - Respiratory Rate 16 11/07/2018 3:00 PM ECONOMIC DEVELOPMENT MANAGER Oxygen Saturation 100% 11/07/2018 3:00 PM ECONOMIC DEVELOPMENT MANAGER Inhaled Oxygen Concentration - - Weight - - Height - - Body Mass Index - - Plan of Treatment Not on file Care Teams Engraver Jewelry Relationship Specialty Start Date End Date Hayden Mendez MD [address] [place] [id number] PCP - General 09/03/19
--- OUTSIDE RECORDS SUMMARY | 2024-12-04 04:36 | XMS_ITS | Patient Health Summary ---
Author Organization [facility] Address [address] [facility] [place] [address] Care Team Providers Care Rural Electrification Engineer Name Role Phone Hayden Mendez MD Primary Care Provider [phone] Note from [facility],non-owned Affiliates and Associated Physician Practices is amultiple site organization consisting of ambulatory clinics and hospital sitesin [place], [place], [place]. This disclosure is being madepursuant to the Care Everywhere program and may not contain all information available regarding this patient. Last updated 18.[facility] Medications * Be aware that medications may not be up to date on this document. Alwaysverify current medications with the patient. * pantoprazole EC (PROTONIX) 20 MG tablet(Started 11/07/2018) Take 1 tablet by mouth once daily Social History Tobacco Use Types Packs/Day Years Used Date Smoking Tobacco: Never Assessed Sex and Gender Information Value Date Recorded Sex Assigned at Not on file Gender Identity Not on file Sexual Orientation Not on file Last Filed Vital Signs Vital Sign Reading Time Taken Comments Blood Pressure 135/89 11/07/2018 3:00 PM AUTO PARTS HANDLER Pulse 87 11/07/2018 3:00 PM AUTO PARTS HANDLER Temperature - - Respiratory Rate 16 11/07/2018 3:00 PM AUTO PARTS HANDLER Oxygen Saturation 100% 11/07/2018 3:00 PM AUTO PARTS HANDLER Inhaled Oxygen Concentration - - Weight - - Height - - Body Mass Index - - Procedures * CARDIAC EKG ORDER(Performed 12/12/2018) * XR CHEST 2VW(Performed 11/07/2018) Performed for Chest pain, unspecified type * URINALYSIS NO MICROSCOPIC NO CULTURE(Performed 11/07/2018) * TROPONIN I(Performed 11/07/2018) * COMPREHENSIVE METABOLIC PANEL(Performed 11/07/2018) * CBC W AUTO DIFFERENTIAL(Performed 11/07/2018) * EKG 12-LEAD(Performed 11/07/2018) Performed for Chest pain, unspecified type Results * CARDIAC EKG ORDER (12/12/2018 3:13 PM AUTO PARTS HANDLER) Narrative 12/12/2018 3:13 PM AUTO PARTS HANDLER Ordered by an unspecified provider. Scanned Document CARDIAC SERVICES ORD ERABLES * XR CHEST 2VW (11/07/2018 1:36 PM AUTO PARTS HANDLER) Anatomical Region Laterality Modality Chest Radiographic Britt ging 11/07/2018 1:40 PM AUTO PARTS HANDLER Impressions 11/07/2018 1:43 PM AUTO PARTS HANDLER IMPRESSION: No acute pulmonary process. Dictated by Sarah Banks MD (radiology scheduler). Dr. THEODORE Valdivia have personally reviewed and interpreted this examination/study. This report was electronically signed by THEODORE RAZO ??on 11/07/2018 1:43 PM . Narrative 11/07/2018 1:43 PM AUTO PARTS HANDLER EXAMINATION: XR CHEST 2VW HISTORY: Chest pain COMPARISON: No prior study is available for comparison. FINDINGS: The lungs are clear. There is no focal consolidation, pleural effusion, or pneumothorax. The cardiomediastinal silhouette is normal. The visible bony thorax is intact. Procedure Note Massimo Theodore Bailey, - 11/07/2018 EXAMINATION: XR CHEST 2VW HISTORY: Chest pain COMPARISON: No prior study is available for comparison. FINDINGS: The lungs are clear. There is no focal consolidation, pleural effusion,or pneumothorax. The cardiomediastinal silhouette is normal. The visiblebony thorax is intact. IMPRESSION: No acute pulmonary process. Dictated by Sarah Banks MD (radiology scheduler). Dr. THEODORE Valdivia have personally reviewed and interpreted this examination/study. This report was electronically signed by THEODORE RAZO on 11/07/2018 1:43 PM . Keyshawn Davis MD DIAGNOSTIC IMAGING O RDERABLES * URINALYSIS NO MICROSCOPIC NO CULTURE (11/07/2018 12:57 PM AUTO PARTS HANDLER) Color UA Straw Straw, Yellow, Colorless 11/07/2018 1:23 PM [facility] Clarity UA Clear Clear, Slt Cloudy 11/07/2018 1:23 PM [facility] Specific [place] UA 1.006 1.005 - 1.030 11/07/2018 1:23 PM [facility] pH UA 5.0 5.0 - 8.0 pH 11/07/2018 1:23 PM [facility] Protein UA Negative Negative mg/dL 11/07/2018 1:23 PM [facility] Glucose UA Negative Negative mg/dL 11/07/2018 1:23 PM [facility] Ketone UA Negative Negative mg/dL 11/07/2018 1:23 PM [facility] Bilirubin UA Negative Negative mg/dL 11/07/2018 1:23 PM [facility] Blood UA Negative Negative 11/07/2018 1:23 PM [facility] Nitrite UA Negative Negative 11/07/2018 1:23 PM [facility] Leukocyte Esterase Negative Negative 11/07/2018 1:23 PM [facility] Urobilinogen UA Negative Negative mg/dL 11/07/2018 1:23 PM [facility] Urine URINE SPECIMEN OBTAINED BY CLEAN CATCH PROCEDURE / Unknown Collection / Unknown 11/07/2018 12:57 PM AUTO PARTS HANDLER 11/07/2018 1:06 PM AUTO PARTS HANDLER Colton Cool MD LAB - URINALYSIS ORD ALEJANDRO Performing Organization Address City/State/[facility] Co de Phone Number [address] [phone] * TROPONIN I (11/07/2018 11:48 AM AUTO PARTS HANDLER) Troponin I <0.010 <0.032 ng/mL 11/07/2018 12:18 PM [facility] Blood BLOOD SPECIMEN / Unknown Venipuncture / Unknown 11/07/2018 11:48 AM AUTO PARTS HANDLER 11/07/2018 11:51 AM AUTO PARTS HANDLER Keyshawn Davis MD LAB - CHEMISTRY [facility] [address] [phone] * (ABNORMAL) CBC W AUTO DIFFERENTIAL (11/07/2018 11:48 AM [facility]) WBC 7.8 3.5 - 10.5 10? 3 /uL 11/07/2018 11:55 AM [facility] RBC 4.61 3.90 - 5.00 10? 6 /uL 11/07/2018 11:55 AM [facility] Hemoglobin 14.8 12.0 - 15.5 g/dL 11/07/2018 11:55 AM [facility] Hematocrit 43.1 35.0 - 45.0 % 11/07/2018 11:55 AM [facility] MCV 93.5 81.0 - 97.0 fL 11/07/2018 11:55 AM [facility] MCH 32.1 28.0 - 34.0 pg 11/07/2018 11:55 AM [facility] MCHC 34.3 32.0 - 36.0 g/dL 11/07/2018 11:55 AM [facility] Platelet Count 218 150 - 400 10? 3 /uL 11/07/2018 11:55 AM [facility] RDW-SD 39.4 36.0 - 50.0 fL 11/07/2018 11:55 AM [facility] RDW-CV 11.6 11.2 - 14.8 % 11/07/2018 11:55 AM [facility] MPV 9.2(L) 9.3 - 12.8 fL 11/07/2018 11:55 AM [facility] nRBC Absolute 0.00 0 10? 3 /uL 11/07/2018 11:55 AM [facility] nRBC Auto 0.0 0 /100 WBC 11/07/2018 11:55 AM [facility] Neutrophils % 61.1 35.0 - 70.0 % 11/07/2018 11:55 AM [facility] Lymphocytes % 31.4 19.7 - 55.1 % 11/07/2018 11:55 AM [facility] Monocytes % 3.7 3.0 - 15.0 % 11/07/2018 11:55 AM [facility] Eosinophils % 3.1 0.0 - 6.0 % 11/07/2018 11:55 AM [facility] Basophil % 0.4 0.0 - 1.5 % 11/07/2018 11:55 AM [facility] Neutrophils Absolute 4.8 1.6 - 7.0 10? 3 /uL 11/07/2018 11:55 AM [facility] Lymphocyte Absolute 2.5 0.8 - 2.9 10? 3 /uL 11/07/2018 11:55 AM [facility] Monocytes Absolute 0.29 0.14 - 0.66 10? 3 /uL 11/07/2018 11:55 AM [facility] Eosinophils Absolute 0.24 0.00 - 0.45 10? 3 /uL 11/07/2018 11:55 AM [facility] Basophils Absolute 0.03 0.00 - 0.06 10? 3 /uL 11/07/2018 11:55 AM [facility] Immature Granulocytes % 0.3 0.0 - 1.0 % 11/07/2018 11:55 AM [facility] Blood BLOOD SPECIMEN / Unknown Venipuncture / Unknown 11/07/2018 11:48 AM AUTO PARTS HANDLER 11/07/2018 11:51 AM [facility] Keyshawn Davis MD LAB - HEMATOLOGY ORD ERABLES [facility] [address] [place] [address] * (ABNORMAL) COMPREHENSIVE METABOLIC PANEL (11/07/2018 11:48 AM [facility]) BUN 11 7 - 26 mg/dL 11/07/2018 12:12 PM [facility] Creatinine 0.7 0.6 - 1.2 mg/dL 11/07/2018 12:12 PM [facility] Sodium 142 136 - 145 mmol/L 11/07/2018 12:12 PM [facility] Potassium 4.1 3.5 - 4.5 mmol/L 11/07/2018 12:12 PM [facility] Chloride 108(H) 98 - 107 mmol/L 11/07/2018 12:12 PM [facility] CO2 22 22 - 29 mmol/L 11/07/2018 12:12 PM [facility] Glucose 91 70 - 115 mg/dL 11/07/2018 12:12 PM [facility] Calcium 9.5 8.4 - 10.2 mg/dL 11/07/2018 12:12 PM [facility] Protein Total 7.5 6.0 - 8.3 g/dL 11/07/2018 12:12 PM [facility] Albumin 4.3 3.4 - 5.0 g/dL 11/07/2018 12:12 PM [facility] Bilirubin Total 0.4 0.2 - 1.2 mg/dL 11/07/2018 12:12 PM [facility] Alkaline Phosphatase 72 40 - 150 Units/L 11/07/2018 12:12 PM [facility] ALT 14 0 - 55 Units/L 11/07/2018 12:12 PM [facility] AST 17 5 - 34 Units/L 11/07/2018 12:12 PM [facility] Anion Gap 16 8 - 18 11/07/2018 12:12 PM [facility] BUN/Creatinine Ratio 16 7 - 23 11/07/2018 12:12 PM [facility] Osmolality Calculated 293 270 - 300 mOsm/kg 11/07/2018 12:12 PM [facility] Albumin/Globulin Ratio 1.3 1.1 - 2.3 11/07/2018 12:12 PM [facility] eGFR >60 >60 mL/min/1.7 3 m2 11/07/2018 12:12 PM [facility] Blood BLOOD SPECIMEN / Unknown Venipuncture / Unknown 11/07/2018 11:48 AM [facility] 11/07/2018 11:51 AM [facility] Keyshawn Davis MD LAB - CHEMISTRY [facility] [address] [phone] * EKG 12-LEAD (11/07/2018 10:49 AM [facility]) Ventricular Rate 76 BPM [facility] Atrial Rate 76 BPM [facility] P-R Interval 160 ms [facility] QRS Duration ms 82 ms [facility] Q-T Interval ms 382 ms [facility] QTC Calculation (Bezet) 429 ms [facility] Calculated P [place] 26 degrees [facility] Calculated R [place] 31 degrees [facility] Calculated T [place] 38 degrees [facility] Interpretation EKG NORMAL SINUS RHYTHM NORMAL ECG NO PREVIOUS ECGS AVAILABLE Confirmed by Anam WATSON, VANGIE ([id number]), story editor KAROLINE BOYLE ([id number]) on 11/30/2018 12:29:02 PM [facility] 11/07/2018 10:4 9 AM AUTO PARTS HANDLER 11/30/2018 12:29 PM AUTO PARTS HANDLER Colton Cool MD ECG ORDERABLES [facility] Care Teams Rural Electrification Engineer Relationship Specialty Start Date End Date Hayden Mendez MD [address] [place] [id number] PCP - General 09/03/19
--- OUTSIDE RECORDS SUMMARY | 2024-12-04 04:36 | XMS_ITS | Clinical Summary ---
Author Organization [facility] Address [address] [facility] [place] [address] Care Team Providers Care Utility Worker Film Processing Name Role Phone Hayden Mendez MD Primary Care Provider [phone] Source Comments [facility],non-owned Affiliates and Associated Physician Practices is amultiple site organization consisting of ambulatory clinics and hospital sitesin [place], [place], [place] and [place]. This disclosure is being madepursuant to the Care Everywhere program and may not contain all information available regarding this patient. Last updated 18.[facility] Medications * Be aware that medications may [...] Comments Blood Pressure 135/89 11/07/2018 3:00 PM CYLINDER BATCHER Pulse 87 11/07/2018 3:00 PM CYLINDER BATCHER Temperature - - Respiratory Rate 16 11/07/2018 3:00 PM CYLINDER BATCHER Oxygen Saturation 100% 11/07/2018 3:00 PM CYLINDER BATCHER Inhaled Oxygen Concentration - - Weight - - Height - - Body Mass Index - - Plan of Treatment Health Maintenance Due Date Last Done Comments COLOGUARD (AGES 45-75) - COL ON CA SCREENING 1969 COLON MONITORING 1969 COLONOSCOPY - COLON CA SCREENING 1969 CT COLONOGRAPHY - COLON CA SCREENING 1969 Colorectal Cancer Screening 1969 FIT - COLON CA SCREENING 1969 FLEX SIG - COLON CA SCREENING 1969 LIPID TESTING 1969 MAMMOGRAM 1969 PAP SMEAR 1969 HIV SCREENING 1984 HEPATITIS C SCREENING 12/09/1987 DTAP/TDAP/TD VACCINES (1 - Tdap) 1988 HEPATITIS B VACCINE (1 of 3 - 19+ 3-dose series) 1988 PNEUMOCOCCAL VACCINE 50+ (1 of 1 - PCV) 2019 ZOSTER VACCINE (1 of 2) 2019 COVID-19 VACCINE (1 - 2023-2 5 season) 2024 INFLUENZA VACCINE (#1) 2024 DEPRESSION SCREENING 11/12/2024 HIB VACCINE Aged Out No longer eligi ble based on patient's age to complete this topic HPV VACCINE Aged Out No longer eligi ble based on patient's age to complete this topic MENINGOCOCCAL (Group B) VACCINE Aged Out No longer eligible based on patient's age to complete this topic MENINGOCOCCAL VACCINE Aged Out No chad abraham eligible based on patient's age to complete this topic PNEUMOCOCCAL VACCINE Aged Out No long er eligible based on patient's age to complete this topic Care Teams Utility Worker Film Processing Relationship Specialty Start Date End Date Hayden Mendez MD [address] [place] [id number] PCP - General 09/03/19
--- OUTSIDE RECORDS SUMMARY | 2024-12-04 04:36 | XMS_ITS | Clinical Summary ---
Author Organization [facility] Address [address] [place] [address]. [place] [address] [place] [address] Care Team Providers Care Wing Coverer Name Role Phone Hayden Mendez MD Primary Care Provider [phone] Delta Iqbal MD Unavailable [phone] Allergies Active Allergy Reactions Criticality Noted Date Comments Aspirin Unknown 06/30/2015 seizure Medications Eslicarbazepine Acetate (APTIOM) 600 MG Tab Take 1 tablet by mouth daily. Active fish oil 1000 MG Cap capsule Take 1 capsule (1,000 mg total) by mouth 2 (two) times daily. Active vitamin B-12 250 MCG Tab Take 1 tablet (250 mcg total) by mouth daily. Active glucosamine-chondro itin 500-400 MG Cap Take 1 capsule by mouth daily. Active atorvastatin (LIPITOR) 10 MG tabletIndications:M ixed hyperlipidemia TAKE 1 TABLET(10 MG) BY MOUTH EVERY NIGHT AT BEDTIME 90 tablet 3 4 Active hydroCHLOROthiazide (HYDRODIURIL) 25 MG tabletIndications:P rimary hypertension TAKE 1 TABLET(25 MG) BY MOUTH EVERY MORNING 30 tablet 3 4 Active indomethacin (INDOCIN) 50 MG capsuleIndications: Chronic gout without tophus, unspecified cause, unspecified site TAKE 1 CAPSULE(50 MG) BY MOUTH THREE TIMES DAILY NEEDED 30 capsule 3 4 Active UBRELVY 100 MG tablet Take 1 tablet (100 mg total) by mouth 2 (two) times daily as needed. 4 Active busPIRone (BUSPAR) 7.5 MG tabletIndications:A nxiety Take 1 tablet (7.5 mg total) by mouth 2 (two) times daily. 180 tablet 3 4 Active venlafaxine XR (EFFEXOR-XR) 37.5 MG 24 hr capsuleIndications: Anxiety Take 1 capsule (37.5 mg total) by mouth daily. 90 capsule 1 4 Active Active Problems Problem Noted Date Diagnosed Date Tobacco abuse 10/20/2024 HTN (hypertension), benign 01/02/2024 Precordial pain 12/11/2018 Gout, arthritis 10/16/2017 Grand mal seizure disorder ([facility]) 12/2012 Migraine, unspecified, not i ntractable, without status migrainosus 06/25/2012 Anxiety 06/25/2012 Hyperlipidemia Encounters Date Type Department Care Team Description 10/20/2024 3:40 PM TOY TRAINS AND ACCESSORIES SALESPERSON Office Visit [facility] Family & Internal Medicine [address] [address] Hayden Mendez MD Follow Up; Hyperlipidemia; Anxiety; Hypertension; Seizures 10/20/2024 Travel from Last 3 Months Immunizations Name Administration Dates Next Due Influenza Adult (Generic) 08/27/2023,07/27/2022, 08/17/2021 MODERNA COVID-19 (GRAVITY PROSPECTING SUPERVISOR LEXIE MEENA), MRNA, LNP-S, PF, 50 MCG/ 0.25 ML DOSE 11/20/2021 PFIZER COVID-19 (ORIGINAL FO RMULATION, PURPLE CAP) mRNA, LNP-S, PF, 30 MCG/0.3 ML DOSE 03/11/2021,02/11/2021 Pneumococcal (Prevnar 20) 06/07/2023 Tdap (Adacel) 07/21/2024 Family History Medical History Relation Comments Breast Cancer Cousin Hypertension Father Alzheimers Maternal Grandmother Cervical Cancer Mother Heart Disease Paternal Grandfather Epilepsy Paternal Uncle Migraines/Headaches Sister Cancer Neg Hx Breast cancer Relation Status Comments Cousin Father Alive Maternal Grandmother Mother Paternal Grandfather Paternal Uncle Sister Social History Tobacco Use Types Packs/Day Years Used Date Smoking Tobacco: Every Day Cigarettes 0.5 35.1 Started: 10/12/1988; Last attempted to quit: 10/12/2018 Smokeless Tobacco: Never Tobacco Cessation:Ready to Q uit: Yes; Counseling Given: Yes Comments:provider to halfway house counselor Alcohol Use Standard Drinks/Week Comments Yes 16.7 (1 standard drink = 0.6 oz pure alcohol) social; 6-10 per week AUDIT-C Answer Date Recorded Frequency of Alcohol Consumption 2-4 times a sun11/11/2018 Average Number of Drinks 3 or 4 018 Frequency of Binge Drinking Never 10/14 PHQ-2 Answer Date Recorded Patient Health Questionnaire-2 Score 0 07/21/2024 Comments No Sex and Gender Information Value Date Recorded Sex Assigned at Female 11/11/2018 2:36 PM TOY TRAINS AND ACCESSORIES SALESPERSON Legal Sex Female 4:55 PM CDT Gender Identity Female 11/11/2018 2:36 PM TOY TRAINS AND ACCESSORIES SALESPERSON Sexual Orientation Straight 11/11/2018 2: 36 PM TOY TRAINS AND ACCESSORIES SALESPERSON Last Filed Vital Signs Vital Sign Reading Time Taken Comments Blood Pressure 160/94 10/20/2024 3:50 PM TOY TRAINS AND ACCESSORIES SALESPERSON Pulse 86 10/20/2024 3:37 PM TOY TRAINS AND ACCESSORIES SALESPERSON Temperature 36.7 ??C (98.1 ??F) 10/20/2024 3:37 PM CS T Respiratory Rate 16 10/20/2024 3:37 PM TOY TRAINS AND ACCESSORIES SALESPERSON Oxygen Saturation 97% 10/20/2024 3:37 PM TOY TRAINS AND ACCESSORIES SALESPERSON Inhaled Oxygen Concentration - - Weight 96.8 kg (213 lb 4.8 oz) 10/20/2024 3:37 P M TOY TRAINS AND ACCESSORIES SALESPERSON Height 167.6 cm (5' 6 ) 10/20/2024 3:37 PM TOY TRAINS AND ACCESSORIES SALESPERSON Body Mass Index 34.43 10/20/2024 3:37 PM TOY TRAINS AND ACCESSORIES SALESPERSON Plan of Treatment Upcoming Encounters Date Type Department Care Team (Late st Contact Info) Description 04/20/2025 2:40 PM CDT Office Visit [facility] Family & Internal Medicine [id number] [place] [address] Hayden Mendez MD [address] [place] [address] Health Maintenance Due Date Last Done Comments Hepatitis C 1987 Hepatitis B Vaccines (1 of 3 - 19+ 3-dose series) 1988 Cervical Cancer Screening Pa p with HPV Testing (Age 30 to 64) Every 5 Years 1999 Zoster Vaccines (1 of 2) 2019 Mammogram Screening 04/19/2024 04/19/2022 Annual Physical 06/07/2024 06/07/2023, 02/23/2021 Cervical Cancer Screening Pa p Smear (Age 30 to 64) Every 3 Years 08/05/2024 08/05/2021 Cervical Cancer Screening with HPV 08/05/2024 PHQ-2 (Physician [place]) 07/21/2025 07/21/2024 COVID-19 Vaccine (4 - 2023-2 5 season) 2025 11/20/2021, 03/11/2021, 02/11/2021 Postponed from 07/13/2024 (Patient Refused) Influenza Adult (#1) 2025 08/27/2023, 07/27/2022, 08/17/2021 Postponed from 08/12/2024 (Patient Refused) Colorectal Cancer Screening Colonoscopy (10 Years) 08/12/2031 08/12/2021 DTaP, Tdap and Td Vaccines ( 2 - Td or Tdap) 07/21/2034 07/21/2024 Pneumococcal Vaccine: Pediatrics (0 to 5 Years) and At-Risk Patients (6 to 64 Years) Completed 06/07/2023 Meningococcal B Vaccine Aged Out No l onger eligible based on patient's age to complete this topic Meningococcal Vaccine Aged Out No chad abraham eligible based on patient's age to complete this topic RSV Immunizations Under 20 Months Aged Out No longer eligible b ased on patient's age to complete this topic Procedures Procedure Name Priority Date/Time Associated Diagnosis Comments MAMMOGRAM GENERIC (SCAN ORDER) 04/19/2022 COLONOSCOPY GENERIC (SCAN ORDER) 08/12/2021 OUTSIDE CYTOPATH CERV/VAG INTERPRET (PAP) (SCAN ORDER) 08/05/2021 from Last 3 Months or Most Recently Relevant to Health Maintenance Results * MAMMOGRAM GENERIC (04/19/2022) Anatomical Region Laterality Modality Other 04/19/2022 Narrative 04/19/2022 Ordered by an unspecified provider. us Documents Scanned SCANNING Final Result * COLONOSCOPY GENERIC (08/12/2021) 08/12/2021 Narrative 08/12/2021 Ordered by an unspecified provider. us Documents Scanned SCANNING Final Result * PAP SMEAR (08/05/2021) 08/05/2021 Narrative 08/05/2021 Ordered by an unspecified provider. us Documents Scanned SCANNING Final Result from Last 3 Months or Most Recently Relevant to Health Maintenance [place] [id number] [facility] Care Teams Wing Coverer Relationship Specialty Start Date End Date Hayden Mendez MD [address] [place] [address] PCP - General 09/19/16 Delta Iqbal MD [facility]. [facility] [address] [place] [address] [place] Primer Assembler CARDIOVASCULAR DISEASE 12/03/18
== END 2024-11-28 09:01 | disposition home or self-care (01) ==
PROVIDERS: PCP Internal Medicine; Referring Provider Internal Medicine Gastroenterology; Visit Provider Internal Medicine Gastroenterology
PROC: 0DJD8ZZ Inspection of Lower Intestinal Tract, Via Natural or Artificial Opening Endoscopic (ICD-10-PCS; CPT 45378; principal; 2024-11-28 08:30)
DX: Z12.11 Encounter for screening for malignant neoplasm of colon (principal); K63.5 Polyp of colon; K57.30 Diverticulosis of large intestine without perforation or abscess without bleeding; E78.5 Hyperlipidemia, unspecified; I10 Essential (primary) hypertension; G40.909 Epilepsy, unspecified, not intractable, without status epilepticus; E66.9 Obesity, unspecified; Z68.33 Body mass index [BMI] 33.0-33.9, adult; Z98.890 Other specified postprocedural states; Z98.51 Tubal ligation status; Z87.891 Personal history of nicotine dependence; Z80.9 Family history of malignant neoplasm, unspecified; Z82.49 Family history of ischemic heart disease and other diseases of the circulatory system
CPT/HCPCS: 45385; 88305; J2003; J2704; J7120

== ENCOUNTER 2025-03-13 06:35 | Outpatient (CLI) | payer BC, SELFPAY ==
--- OUTSIDE RECORDS SUMMARY | 2025-03-13 06:40 | XMS_ITS | Encounter Summary ---
Author Organization [facility] Address [address] [place] [address] Care Team Providers Care Diffusion Furnace Operator Name Role Phone Hayden Mendez MD Primary Care Provider [phone] Encounter Details Date Type Department Care Team (Late st Contact Info) Description 03/29/2020 Lab Requisition [facility] Laboratory Services [facility] [address] [place] [address] Kevyn Adams MD [address] [place] [address] Social History Tobacco Use Types [...] Not Detected 03/31/20 20 5:15 AM CDT [facility] --[facility] Comment:See Scanned Report PERFORMING LAB [facility] 03/31/2020 5:15 AM CDT [facility] [employer] [facility] Upper Respiratory Collection / Unknown 03/29/2020 8:28 PM CDT 03/29/2020 8:28 PM CDT Kevyn Adams MD MICROBIOLOGY - GENERAL ORDERABLES Final Result [facility] --- [facility]# [id number] [address] [place] [address] [id number] [address] [place] [address] documented in this encounter Visit Diagnoses Not on filedocumented in this encounter Care Teams Diffusion Furnace Operator Relationship Specialty Start Date End Date Hayden Mendez MD [address] [place] [phone] PCP - General Internal Medicine 01/02/24 documented as of this encounter
--- OUTSIDE RECORDS SUMMARY | 2025-03-13 06:40 | XMS_ITS | Clinical Summary ---
Author Organization [facility] Address [facility] [place] [address] Care Team Providers Care Degreaser Name Role Phone Hayden Mendez MD Primary Care Provider [phone] Delta Iqbal MD Unavailable [phone] Allergies Active Allergy Reactions Criticality Noted Date [...] (EFFEXOR-XR) 37.5 MG 24 hr capsuleIndications: Anxiety TAKE 1 CAPSULE(37.5 MG) BY MOUTH DAILY 90 capsule 1 5 Active Active Problems Problem Noted Date Diagnosed Date Tobacco abuse 10/20/2024 HTN (hypertension), benign 01/02/2024 Precordial pain 12/11/2018 Gout, arthritis 10/16/2017 Grand mal seizure disorder ([facility]) 12/2012 Migraine, unspecified, not i ntractable, without status migrainosus 06/25/2012 Anxiety 06/25/2012 Hyperlipidemia Immunizations Immunization Administration Dates Next Due Influenza Adult (Generic) 08/27/2023,07/27/2022, 08/17/2021 MODERNA COVID-19 (IT OPERATIONS SPECIALIST LEXIE MEENA), MRNA, LNP-S, PF, 50 MCG/ [...] Date Smoking Tobacco: Every Day Cigarettes 0.5 35.3 Started: 10/12/1988; Last attempted to quit: 10/12/2018 Smokeless Tobacco: Never Tobacco Cessation:Ready to Q uit: Yes; Counseling Given: Yes Comments:provider to food counselor Alcohol Use Standard Drinks/Week Comments Yes [...] Sex Assigned at Female 11/11/2018 2:36 PM FREIGHT AGENT Legal Sex Female 4:55 PM CDT Gender Identity Female 11/11/2018 2:36 PM FREIGHT AGENT Sexual Orientation Straight 11/11/2018 2: 36 PM FREIGHT AGENT Last Filed Vital Signs Vital Sign Reading Time Taken Comments Blood Pressure 160/94 10/20/2024 3:50 PM FREIGHT AGENT Pulse 86 10/20/2024 3:37 PM FREIGHT AGENT Temperature 36.7 C (98.1 F) 10/20/2024 3:37 PM FREIGHT AGENT Respiratory Rate 16 10/20/2024 3:37 PM FREIGHT AGENT Oxygen Saturation 97% 10/20/2024 3:37 PM FREIGHT AGENT Inhaled Oxygen Concentration - - Weight 96.8 kg (213 lb 4.8 oz) 10/20/2024 3:37 P M FREIGHT AGENT Height 167.6 cm (5' 6 ) 10/20/2024 3:37 PM FREIGHT AGENT Body Mass Index 34.43 10/20/2024 3:37 PM FREIGHT AGENT Plan of Treatment Upcoming Encounters Date Type Department Care Team (Late st Contact Info) Description 05/11/2025 1:00 PM CDT Office Visit [facility] Family & Internal Medicine - [address] [address] Hayden Mendez MD [address] [place] [address] Health Maintenance Due Date Last Done Comments [...] Cancer Screening with HPV 08/05/2024 PHQ-2 (Physician [place]) 11/12/2024 07/21/2024 COVID-19 Vaccine (4 - 2023-2 5 season) 2025 11/20/2021, 03/11/2021, 02/11/2021 Postponed from 07/13/2024 (Patient Refused) DTaP, Tdap and Td Vaccines ( 2 - Td or Tdap) 07/21/2034 07/21/2024 Colorectal Cancer Screening Colonoscopy (10 Years) 11/28/2034 11/28/2024, 08/12/2021 Pneumococcal Vaccine: 50+ Years Completed 06/07/2023 Meningococcal B Vaccine Aged Out No l onger eligible based on patient's age to complete this topic Meningococcal Vaccine Aged Out No chad abraham eligible based on patient's age to complete this topic RSV Immunizations Under 20 Months Aged Out No longer eligible b ased on patient's age to complete this topic Procedures Procedure Name Priority Date/Time Associated Diagnosis Comments COLONOSCOPY GENERIC (SCAN ORDER) 11/28/2024 MAMMOGRAM GENERIC (SCAN ORDER) 04/19/2022 OUTSIDE CYTOPATH CERV/VAG INTERPRET (PAP) (SCAN ORDER) 08/05/2021 from Last 3 Months or Most Recently Relevant to Health Maintenance Results * COLONOSCOPY GENERIC (SCAN ORDER) (11/28/2024) 11/28/2024 us Doc Med Group Scanned SCANNING Final Resu lt * MAMMOGRAM GENERIC (04/19/2022) Anatomical Region Laterality Modality Other 04/19/2022 Narrative 04/19/2022 Ordered by an unspecified provider. us Documents Scanned SCANNING Final Result * PAP SMEAR (08/05/2021) 08/05/2021 Narrative 08/05/2021 Ordered by an unspecified provider. us Documents Scanned SCANNING Final Result from Last 3 Months or Most Recently Relevant to Health Maintenance Insurance [facility] Care Teams Degreaser Relationship Specialty Start Date End Date Hayden Mendez MD [address] [place] [address] PCP - General 09/19/16 Delta Iqbal MD [facility]. [facility] [address] [place] [address] [place] [employer] Vice President CARDIOVASCULAR DISEASE 12/03/18
--- OUTSIDE RECORDS SUMMARY | 2025-03-13 06:40 | XMS_ITS | Clinical Summary ---
Author Organization [facility] Address [address] [place] [address] Care Team Providers Care Grinder Setup Operator Name Role Phone Hayden Mendez MD Primary Care Provider [phone] Source Comments [facility],non-owned Affiliates and Associated Physician Practices is amultiple site organization consisting of ambulatory clinics and hospital sitesin [place], [place], [place] and [place]. This disclosure is being madepursuant to the Care Everywhere program and may not contain all information available regarding this patient. Last updated 18.[facility] Medications * Be aware that medications may not be up to date on this document. Alwaysverify current medications with the patient. pantoprazole EC (PROTONIX) 20 MG tablet Take 1 tablet by mouth once daily 30 tablet 11/07/2018 Active Social History Tobacco Use Types Packs/Day Years Used Date Smoking Tobacco: Never Assessed Comments Unknown Sex and Gender Information Value Date Recorded Sex Assigned at Not on file Legal Sex Female 10:41 AM GREENS PLANTER Gender Identity Not on file Sexual Orientation Not on file Last Filed Vital Signs Vital Sign Reading Time Taken Comments Blood Pressure 135/89 11/07/2018 3:00 PM GREENS PLANTER Pulse 87 11/07/2018 3:00 PM GREENS PLANTER Temperature - - Respiratory Rate 16 11/07/2018 3:00 PM GREENS PLANTER Oxygen Saturation 100% 11/07/2018 3:00 PM GREENS PLANTER Inhaled Oxygen Concentration - - Weight - - Height - - Body Mass Index - - Plan of Treatment Health Maintenance Due Date Last Done Comments MELQUIADES (AGES 45-75) - COL ON CA SCREENING [...] VACCINE (1 of 2) 2019 COVID-19 VACCINE ( - 2023-2 5 season) 2024 DEPRESSION SCREENING 11/12/2024 INFLUENZA VACCINE (Season Ended) 2025 HIB VACCINE Aged Out No longer eligi ble based on patient's age to complete this topic HPV VACCINE Aged Out No longer eligi ble based on patient's age to complete this topic MENINGOCOCCAL (Group B) VACC INE SHARED DECISION-MAKING Aged Out No longer eligibl e based on patient's age to complete this topic MENINGOCOCCAL GROUPS A/C/Y/W VACCINE Aged Out No longer eligible b ased on patient's age to complete this topic [place] [address] [address] [place] [address] [facility] S[facility]F PAY NO INSURANCE Member Subscriber Plan / Payer (Ef fective for All Dates) Name:Estevan Castrejon Member ID:Not on file Relation to Subscriber:Not on file Name:ESTEVAN CASTREJON Subscriber ID:Not on file (Home) Address: [address] [place] [address] Payer ID:Not on file Group ID:Not on file Type:Self Pay Address: [place], [place] Care Teams Grinder Setup Operator Relationship Specialty Start Date End Date Hayden Mendez MD [address] [place] [id number] PCP - General 09/03/19
--- OUTSIDE RECORDS SUMMARY | 2025-03-13 06:40 | XMS_ITS | Clinical Summary ---
Author Organization [facility] Address [address] [place] [phone] Phone Care Team Providers Care Gutter Hanger Name Role Phone Hayden Mendez MD Primary Care Provider [phone] Allergies Active Allergy Reactions Criticality Noted Date [...] Encounters Date Type Department Care Team Description 12/30/2024 External Device Data STL ABSTRACTION Provider, Abstract [...] Comments Blood Pressure 138/78 01/02/2024 9:31 AM EDUCATIONAL PROGRAMMING DIRECTOR Pulse 74 01/02/2024 9:31 AM EDUCATIONAL PROGRAMMING DIRECTOR Temperature 36.6 C (97.8 F) 01/02/2024 9:31 AM EDUCATIONAL PROGRAMMING DIRECTOR Respiratory Rate - - Oxygen Saturation 96% 01/02/2024 9:31 AM EDUCATIONAL PROGRAMMING DIRECTOR Inhaled Oxygen Concentration - - Weight 98.5 kg (217 lb 4 oz) 01/02/2024 9:31 AM EDUCATIONAL PROGRAMMING DIRECTOR Height 170.2 cm (5' 7 ) 01/02/2024 9:31 AM EDUCATIONAL PROGRAMMING DIRECTOR Body Mass Index 34.03 01/02/2024 9:31 AM EDUCATIONAL PROGRAMMING DIRECTOR Plan of Treatment Health Maintenance Due Date Last Done Comments DTAP/TDAP/TD VACCINES (1 - Tdap) 1988 HEPATITIS B VACCINES (1 of 3 - 19+ 3-dose series) 1988 HPV/Cotest (21-29) 1990 CERVICAL CANCER SCREENING 1999 HPV/Cotest (30-65) 1999 PAP SMEAR 1999 BREAST CANCER SCREENING 2009 FIT-DNA Q 3 years 2014 FIT/FOBT Q 1 year 2014 Flex Sig/CT Colonography Q 5 years 2014 ZOSTER VACCINE (1 of 2) 2019 INFLUENZA VACCINE (#1) 2024 3, 07/27/2022, 08/17/2021 COVID-19 Vaccine ( season) 2024 11/20/2021, 03/11/2021, 02/11/2021 COLORECTAL SCREENING 08/12/2031 08/12/2021 Colorectal Cancer Screening 08/12/2031 Insurance [facility] BLUE ACCESS CHOICE BLUE ACCESS CHOICE Care Teams Gutter Hanger Relationship Specialty Start Date End Date Hayden Mendez MD [address] [place] [phone] PCP - General Internal Medicine 01/02/24
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
== END 2025-03-13 06:36 | disposition home or self-care (01) ==
PROVIDERS: PCP Internal Medicine; Visit Provider Psychiatry & Neurology Neurology
DX: Z87.828 Personal history of other (healed) physical injury and trauma (principal)
CPT/HCPCS: 95816

== ENCOUNTER 2025-05-13 09:04 | Outpatient (CLI) | payer BC, SELFPAY ==
--- NOTE | ~2025-05-13 | DEXA_ITS ---
Bone Density Report Name: ESTEVAN CASTREJON Age: 54 Sex: Female Ethnicity: White Date of : 1970 Indication: postmenopausal; screening for osteoporosis; height loss; seizure disorder; Referring Provider: BINA, SUMMER Study: Bone densitometry was performed. Exam Date: May 13, 2025 Accession number: [id number] Bone Density: Region BMD T-score Z-score Classification AP Spine(L1-L4) 1.071 0.2 1.3 Normal Femoral Neck (Left) 0.741 -1.0 0.1 Normal Total Hip (Left) 0.920 -0.2 0.5 Normal Femoral Neck (Right) 0.755 -0.8 0.2 Normal Total Hip (Right) 0.915 -0.2 0.5 Normal Total Hip Mean 0.918 -0.2 0.5 Normal World Health Organization criteria for BMD impression classify patients as: Normal (T-score at or above -1.0), Osteopenia (T-score between -1.0 and -2.5), or Osteoporosis (T-score at or below -2.5). 10-year Fracture Risk: FRAX not reported because: All T-scores for Spine Total, Hip Total, Femoral Neck at or above -1.0 Clinical Information Provided by Patient: Smokes Has used the following medications: Vitamin D, Calcium Has the following medical conditions: Any Seizure Disorders Patient maximum height was 67.0 Menopause Age: 49 No regular weight bearing exercise Drinks caffeinated beverages Onset of menses at age 12 Number of children 0 Impression: The patient has normal bone mass. The patient has risk factors, including: smoking. Discussion: BONE DENSITY IS ABOVE THE MINIMUM DESIRABLE LEVEL AT ALL SKELETAL SITES TESTED. This patient?s bone mineral density is above the minimum desirable level (T-score -1.0 or better) at all sites measured. The patient should follow a healthful lifestyle (good nutrition with adequate calcium and vitamin D, and appropriate weight-bearing exercise). Follow-Up: Consider repeating this study in 5 years or sooner if there is some new clinical indication. Reported by: ALINA on 05/13/2025 9:52:00 AM. Reviewed, dictated and finalized at location A.
--- NOTE | ~2025-05-13 | MM_ITS ---
EXAMINATION: MM screening cholo BI w ronnie HISTORY: Screening mammogram TECHNIQUE: Craniocaudal and mediolateral oblique 3-D tomosynthesis images were obtained and synthetic 2-D images were generated. CAD analysis was submitted and interpreted. COMPARISON: 06/25/2023, 04/19/2022, 07/15/2021, 02/04/2020 BREAST PARENCHYMAL COMPOSITION:Not Dense. There are scattered areas of fibroglandular density. FINDINGS: Stable bilateral breast masses. No suspicious mass, calcification, or architectural distort ion are identified in either breast to suggest malignancy. There has been no suspicious interval agosto ge. IMPRESSION: No mammographic evidence of malignancy. Recommend routine screening mammography in one year. BI-RADS Category 2: Benign finding(s). Reviewed, dictated and finalized at location .
--- OUTSIDE RECORDS SUMMARY | 2025-05-13 09:19 | XMS_ITS | Encounter Summary ---
Author Organization [facility] Address [address] [place] [address] Care Team Providers Care Die Cutting Machine Operator Name Role Phone Hayden Mendez MD Primary Care Provider [phone] Encounter Details Date Type Department Care Team (Late st Contact Info) Description 03/29/2020 Lab Requisition [facility] Laboratory Services [facility] [address] [place] [address] Kevyn Adams MD [address] [place] [address] Social History Tobacco Use Types [...] Not Detected 03/31/20 20 5:15 AM CDT [facility] Comment:See Scanned Report PERFORMING LAB [facility] 03/31/2020 5:15 AM CDT [facility] Upper Respiratory Collection / Unknown 03/29/2020 8:28 PM CDT 03/29/2020 8:28 PM CDT Kevyn Adams MD MICROBIOLOGY - GENERAL ORDERABLES Final Result [facility] --- [facility]# [id number] [address] [place] [address] [id number] [address] [place] [place] [address] documented in this encounter Visit Diagnoses Not on filedocumented in this encounter Care Teams Die Cutting Machine Operator Relationship Specialty Start Date End Date Hayden Mendez MD [address] [place] [phone] PCP - General Internal Medicine 01/02/24 documented as of this encounter
--- OUTSIDE RECORDS SUMMARY | 2025-05-13 09:19 | XMS_ITS | Clinical Summary ---
Author Organization [facility] Address [address] [place] [phone] Phone Care Team Providers Care Teller Head Name Role Phone Hayden Mendez MD Primary Care Provider [phone] Allergies Active Allergy Reactions Criticality Noted Date [...] not i ntractable, without status migrainosus 06/25/2012 Immunizations Immunization Administration Dates Next Due INFLUENZA [...] Comments Blood Pressure 138/78 01/02/2024 9:31 AM AUTOMATIC COIL MACHINE OPERATOR Pulse 74 01/02/2024 9:31 AM AUTOMATIC COIL MACHINE OPERATOR Temperature 36.6 C (97.8 F) 01/02/2024 9:31 AM AUTOMATIC COIL MACHINE OPERATOR Respiratory Rate - - Oxygen Saturation 96% 01/02/2024 9:31 AM AUTOMATIC COIL MACHINE OPERATOR Inhaled Oxygen Concentration - - Weight 98.5 kg (217 lb 4 oz) 01/02/2024 9:31 AM AUTOMATIC COIL MACHINE OPERATOR Height 170.2 cm (5' 7) 01/02/2024 9:31 AM AUTOMATIC COIL MACHINE OPERATOR Body Mass Index 34.03 01/02/2024 9:31 AM AUTOMATIC COIL MACHINE OPERATOR Plan of Treatment Health Maintenance Due Date [...] 2014 ZOSTER VACCINE (1 of 2) 2019 COVID-19 Vaccine ( season) 2024 11/20/2021, 03/11/2021, 02/11/2021 INFLUENZA VACCINE (#1) 2025 3, 07/27/2022, 08/17/2021 COLORECTAL SCREENING 08/12/2031 08/12/2021 Colorectal Cancer Screening 08/12/2031 Insurance [facility] BLUE ACCESS CHOICE [facility] BLUE ACCESS CHOICE Care Teams Teller Head Relationship Specialty Start Date End Date Hayden Mendez MD [address] [place] [phone] PCP - General Internal Medicine 01/02/24
--- OUTSIDE RECORDS SUMMARY | 2025-05-13 09:19 | XMS_ITS | Clinical Summary ---
Author Organization [facility] Address [address] [place] [address] Care Team Providers Care Soft Top Installer Name Role Phone Hayden Mendez MD Primary Care Provider Source Comments [facility],non-owned Affiliates and Associated Physician Practices is amultiple site organization consisting of ambulatory clinics and hospital sitesin [place], [place], [place] and [place]. This disclosure is being madepursuant to the Care Everywhere program and may not contain all information available regarding this patient. Last updated 18.[facility] Medications * Be aware that medications may [...] on file Legal Sex Female 10:41 AM TELEVISION WRITER Gender Identity Not on file Sexual Orientation Not on file Last Filed Vital Signs Vital Sign Reading Time Taken Comments Blood Pressure 135/89 11/07/2018 3:00 PM TELEVISION WRITER Pulse 87 11/07/2018 3:00 PM TELEVISION WRITER Temperature - - Respiratory Rate 16 11/07/2018 3:00 PM TELEVISION WRITER Oxygen Saturation 100% 11/07/2018 3:00 PM TELEVISION WRITER Inhaled Oxygen Concentration - - Weight - [...] SCREENING 1970 LIPID TESTING 1970 MAMMOGRAM 1969 HIV SCREENING 1984 HEPATITIS C SCREENING 12/09/1987 DTAP/TDAP/TD VACCINES (1 - Tdap) 1988 HEPATITIS B VACCINE (1 of 3 - 19+ 3-dose series) 1988 PAP SMEAR 1990 PNEUMOCOCCAL VACCINE 50+ (1 of 1 - PCV) 2019 ZOSTER VACCINE (1 of 2) 2019 COVID-19 VACCINE (1 - 2023-2 5 season) 2024 DEPRESSION SCREENING 11/12/2024 INFLUENZA VACCINE (#1) 2025 HIB VACCINE Aged Out No longer [...] patient's age to complete this topic [place] [address] [place] [address] SELF PAY NO INSURANCE Member Subscriber Plan / Payer (Ef fective for All Dates) Name:Estevan Castrejon Member ID:Not on file Relation to Subscriber:Not on file Name:ESTEVAN CASTREJON Subscriber ID:Not on file (Home) Address: [address] [place] [address] Payer ID:Not on file Group ID:Not on file Type:Self Pay Address: [place], [place] Care Teams Soft Top Installer Relationship Specialty Start Date End Date Hayden Mendez MD [address] [place] [id number] PCP - General 09/03/19
== END 2025-05-13 09:05 | disposition home or self-care (01) ==
PROVIDERS: PCP Internal Medicine; Visit Provider Nurse Practitioner
DX: Z12.31 Encounter for screening mammogram for malignant neoplasm of breast (principal); Z78.0 Asymptomatic menopausal state
CPT/HCPCS: 77063; 77067; 77080